=== PATIENT | female | born 1985 | race African-American/Black ===

== ENCOUNTER 2021-07-01 23:02 | Emergency (ER) | payer OTHER ==
[~2021-07-01] VITALS: Ht 165.1 cm; Wt 104.3 kg
[2021-07-01] MEDS ORDERED: FLONASE ALLERG9.9 ML INH (23:29)
[2021-07-01] MEDS ORDERED: PREDNISONE50 MG PO (23:29)
[2021-07-01] MEDS ORDERED: AUGMENTIN 875-1 EACH PO (23:29)
[2021-07-01] MEDS ORDERED: PREDNISONE 20 MG TAB PO ONE (23:30)
[2021-07-01] MEDS ORDERED: DIFLUCAN100 MG PO (23:31)
[2021-07-01] MEDS ORDERED: PREDNISONE 20 MG TAB ONE (23:39)
== END 2021-07-01 23:45 | disposition home or self-care (01) ==
LOC: FSED 23:09
DX: J02.9 Acute pharyngitis, unspecified (principal); J01.90 Acute sinusitis, unspecified
CPT/HCPCS: J7512

== ENCOUNTER 2021-10-05 16:56 | Emergency (ER) | payer OTHER ==
[~2021-10-05] VITALS: Ht 165.1 cm; Wt 105.2 kg
[~2021-10-05 16:56] MED LIST: AUGMENTIN 875-1 EACH PO; DIFLUCAN100 MG PO; FLONASE ALLERG9.9 ML INH; PREDNISONE50 MG PO
== END 2021-10-05 18:35 | disposition home or self-care (01) ==
LOC: FSED 17:27
DX: R50.9 Fever, unspecified (principal); B34.9 Viral infection, unspecified; E11.9 Type 2 diabetes mellitus without complications; M79.10 Myalgia, unspecified site
CPT/HCPCS: 83518; 87400; 99283

== ENCOUNTER 2022-07-09 04:25 | Emergency (ER) | payer BC, OTHER ==
[~2022-07-09] VITALS: Ht 165.1 cm; Wt 105.2 kg
[2022-07-09] MEDS ORDERED: TOBREX3.5 GM OU (04:56)
== END 2022-07-09 05:46 | disposition home or self-care (01) ==
LOC: FSED 04:35
DX: H10.9 Unspecified conjunctivitis (principal); E11.9 Type 2 diabetes mellitus without complications
CPT/HCPCS: 99282

== ENCOUNTER 2022-07-24 12:44 | Emergency (ER) | payer BC, OTHER ==
[~2022-07-24] VITALS: Ht 165.1 cm; Wt 95.7 kg
[~2022-07-24 12:44] MED LIST changes: +TOBREX3.5 GM OU
[2022-07-24] MEDS ORDERED: TRULICITY1.5 MG/0.5 (13:16)
[2022-07-24] MEDS ORDERED: IBUPROFEN 600 MG TAB PO STA (13:22)
[2022-07-24] MEDS ORDERED: ULTRAM 50MG50 MG PO (14:48)
[2022-07-24] MEDS ORDERED: IBUPROFEN600 MG PO (14:48)
== END 2022-07-24 15:12 | disposition home or self-care (01) ==
LOC: FSED 12:47
DX: S62.396A Other fracture of fifth metacarpal bone, right hand, initial encounter for closed fracture (principal); W22.09XA Striking against other stationary object, initial encounter; Y92.814 Boat as the place of occurrence of the external cause; E11.9 Type 2 diabetes mellitus without complications
CPT/HCPCS: 81025; 99284

== ENCOUNTER 2023-02-08 23:29 | Emergency (ER) | payer BC, OTHER ==
[~2023-02-08] VITALS: Ht 165.1 cm; Wt 94.8 kg
[~2023-02-08 23:29] MED LIST changes: +IBUPROFEN600 MG PO; +TRULICITY1.5 MG/0.5; +ULTRAM 50MG50 MG PO
== END 2023-02-09 01:45 | disposition home or self-care (01) ==
LOC: FSED 23:51
DX: R05.9 Cough, unspecified (principal); J06.9 Acute upper respiratory infection, unspecified; E11.9 Type 2 diabetes mellitus without complications
CPT/HCPCS: 83518; 87400; 99283

== ENCOUNTER 2024-10-26 20:03 | Emergency (ER) | payer BC, OTHER ==
[~2024-10-26] VITALS: Ht 165.1 cm; Wt 85.7 kg
[~2024-10-26 20:03] MED LIST changes: +AZITHROMYCIN250 MG PO; +CORICIDIN COLD1 EACH PO; +DIPHENHYDRAMINE25 MG PO; +IBUPROFEN200 MG PO; +NASACORT16.9 ML; +PAXLOVID 150-11 EAC1 PO; +VENTOLIN HFA18 GM INH
[2024-10-26] MEDS ORDERED: DIPHENHYDRAMINE25 M2 PO (21:27)
[2024-10-26] MEDS ORDERED: TYLENOL325 MG PO (21:27)
[2024-10-26 21:48] VITALS: PULSE 92; RESP 16; TEMP 98.7
[2024-10-26 21:49] VITALS: BP 133/85; PULSE 92; RESP 16; TEMP 98.7; O2SAT 99
== END 2024-10-26 21:51 | disposition home or self-care (01) ==
LOC: FSED 20:07
DX: R05.9 Cough, unspecified (principal); J10.1 Influenza due to other identified influenza virus with other respiratory manifestations; I10 Essential (primary) hypertension; E11.9 Type 2 diabetes mellitus without complications; F32.A Depression, unspecified; Z11.52 Encounter for screening for COVID-19
CPT/HCPCS: 0223U; 71046; 83518 ×2; 87400; 99283